=== PATIENT | female | born 1945 | race Caucasian/White ===

== ENCOUNTER → 2016-10-31 | Day surgery (SDC) | payer MEDICARE ==
[2016-10-31] VITALS (8 sets, daily range): BP systolic 116–139; BP diastolic 48–72; PULSE 59–68; RESP 12–18; O2SAT 97–100
[~2016-10-31] VITALS: Ht 162.6 cm; Wt 62.6 kg
[~2016-10-31] MED LIST: ACET-2605 PO; ALBU8.5H2 INHALATION; ALLO300T2 PO; ASPI325T32 PO; CHOL200047 PO; Dexamethasone 4 mg/mL Inj IVPUSH PRN; Dexamethasone 4 mg/mL Inj ONE; EPHEDrine Sulfate 50 mg/mL Inj IVPUSH PRN; EPHEDrine/NS 5 mg/mL 5 mL Syringe ONE; GABA-502 PO; HYDR-3090 PO; HYDR-656 PO; HYDROcodone-APAP 5-325 mg Tablet PO PRN; HYDROmorphone 1 mg/mL Inj IVPUSH PRN; ISOS60TA2 PO; L.AC1CAP6 PO; LEVO125C2 PO; Lactated Ringer's 1,000 ML IV ONE; Lactated Ringer's 1,000 ML IV SCH; Lactated Ringer's 500 ML IV PRN; METF500T4 PO; METO50TA3 PO; MetoCLOpramide 5 mg/mL 2 mL Inj IVPUSH PRN; NITR0.4T6 SL; OMEP20CA11 PO; Ondansetron 2 mg/mL 2 mL Inj IVPUSH PRN; Ondansetron 2 mg/mL 2 mL Inj ONE; POTA20PA12 PO; PRAV40TA PO; Phenylephrine 10,000 mCg/mL Inj IVPUSH PRN; Phenylephrine/NS 100 mCg/mL 10 mL Syringe IVPUSH ONE; Propofol 10,000 mCg/mL 20 mL Inj ONE; Vancomycin Inj 1,000 MG in IV Premix 1 EACH IV ONE; fentaNYL-PF 50 mCg/mL 2 mL Inj IVPUSH PRN; fentaNYL-PF 50 mCg/mL 2 mL Inj ONE
--- NOTE | 2016-10-31 08:21 | PCM.HPANE ---
Patient Data Surgeon Admitting Provider: Attending Provider:Edie Vaca MD Primary Care Physician:Forrest Floyd MD Other Provider:[facility] Reason for Visit Right Kidney Stone Ht/WT & BMI Height (Feet): 5 Height (Inches): 4 Weight (Kilograms): 69.85 Body Mass Index 26.00 Allergies Coded Allergies: Penicillins (Verified Allergy, Severe, hives and swelling, 12/06/13) Quinolones (Verified Allergy, Severe, RASH,HIVES, 12/06/13) amlodipine (Verified Allergy, Severe, hives and swelling (pt currently taking amlodipine), 12/06/13) codeine (Verified Allergy, Severe, OK WITH MORPHINE, 12/06/13) erythromycin ethylsuccinate (Verified Allergy, Severe, HIVES,RASH, 12/06/13 ) lisinopril (Verified Allergy, Severe, RASH, HIVES, 12/06/13) peanut (Verified Allergy, Severe, ANAPHYLAXIS, 12/06/13) prednisone (Verified Allergy, Severe, RASH,HIVES, 12/06/13) verapamil (Verified Allergy, Severe, severe tacycardia and swelling, ) nitrofurantoin (Verified Allergy, Unknown, oral sores, 12/25/15) Uncoded Allergies: MILK,BANANAS,NUTS,COD (Allergy, Unknown, unknown, 12/06/13) Past Anesthesia History Anesthesia History: Denies:: Abnormal Airway, Anesthesia Reactions, Difficult Intubation, Malignant Hyperthermia Diabetes History Hx Diabetes?: Yes (hgb A1c 5.7) Type of Diabetes: Type II Glycemic Control: Oral Medication MRSA MRSA: No Medications Blood Thinner: Aspirin Hypertension Medication: Yes Home Meds Incl Beta Jennifer: Yes Reported Medications Cholecalciferol (Vitamin D3) (Vitamin D3)2,000 Unit Capsule2,000 Unit PO DAILY 10/21/16 Acetaminophen/Diphenhydramine (Tylenol Pm Ex-Strength Caplet)500 Mg-25 Mg Tablet1 Each PO PRN For Pain 10/21/16 Levothyroxine (Tirosint)125 Mcg Zyroiae693 Mcg PO DAILY 10/21/16 L.acidoph & Paracasei,B.lactis (Probiotic)10 Billion Cell Capsule1 Each PO DAILY 10/21/16 Albuterol HFA (Proair HFA)8.5 Gm Hfa.aer.ad2 Puffs INHALATION Q4H PRN For Shortness of Breath #1 INHALER 10/21/16 Pravastatin 40 Mg Rmywuz56 Mg PO DAILY Ref 0 10/21/16 Potassium Chloride (Potassium Chloride Powder)20 Meq PacketUnknown Dose PO DAILY 30 Days Ref 0 DISSOLVE CONTENTS OF PACKET IN FULL GLASS OF WATER AND DRING TWO TIMES DAILY. TAKE WITH FOOD 10/21/16 Omeprazole 20 Mg Capsule.dr20 Mg PO DAILY Ref 0 10/21/16 Nitroglycerin SL 0.4 Mg Tab.subl0.4 Mg SL PRN For Chest Pain 10/21/16 Metoprolol Tartrate 50 Mg Gojfky39 Mg PO TID 30 Days Ref 0 10/21/16 Metformin 500 Mg Olpljy556 Mg PO BID Ref 0 10/21/16 Isosorbide MN ER 60 Mg Tab.er.24h90 Mg PO DAILY 10/21/16 hydrOXYzine Hcl (HydrOXYzine Hcl)25 Mg Siblud01 Mg PO HS PRN For Spasm 10/21/16 Hydrocodone-Acetaminophen 5-300 mg 1 Each Tablet1 Tablet PO Q4H PRN For Pain Ref 0 10/21/16 Gabapentin 300 Mg Ipkiucr488 Mg PO DAILY Ref 0 10/21/16 Aspirin 325 Mg Hzjpwc644 Mg PO DAILY #1 BOTTLE 10/21/16 Allopurinol 300 Mg Ginkhx172 Mg PO DAILY Ref 0 10/21/16 History History of ENT Problems?: No HEENT History: Denies:: Abnormal Airway Difficult Intubation Denture Type: None Teeth Condition: Broken Teeth Hx of Heart Problems?: Yes Cardiovascular History: Positive for:: Cardiac Surgery (Cabg- 3 vessel 2005, multiple stents) Chest Pain Edema Heart Murmur (ECHO 05/2013) Hypertension Irregular Heartbeat (sinus bradycardia) Hx of Respiratory Problem?: Yes Respiratory History: Positive for:: Asthma COPD Denies:: Oxygen Administration Pneumonia Tuberculosis Use of C-PAP Machine Hx Neurologic Problems?: Yes Neurological History: Positive for:: Dizziness (hx of syncope) Denies:: CVA Multiple Sclerosis Parkinson's Disease Seizures Other Neurological Pertinent: hx of peripheral neuropathy Hx of GI Problems?: Yes Hx of Problems?: Yes Genitourinary History: Positive for:: Kidney Stones (right kidney stone current admission problem, hx of prior stones) Denies:: Urinary Tract Infection (past hx of) Female Hx: Positive for:: Problems with Breasts? (prior hx of benign breast bx ) Denies:: Currently (hysterectomy) Skin History: Denies:: History Skin Disorders? Pressure Ulcers Hx Musculoskeletal Problems?: No Musculoskeletal History: Denies:: Degenerative Joint Fibromyalgia Joint Replacement Musculoskeletal Trauma Osteoarthritis Hx of Psycho/Social Problems?: No Hx Surgeries?: Yes (CABG x 2, hyst, mult kidney stones, elisha, A+P repair, bladder sling) Hx Any Other Health Problems?: Yes Other History: Positive for:: Hospitalization Thyroid Disease Denies:: Cancer Endocrine Disease History Blood Transfusions: Denies:: Blood Transfusions Hx Diabetes: Yes (hgb A1c 5.7) Hx Alcohol Use: NoHx Substance Use: No Smoking Status: Unknown if Ever Smoker Have You Smoked inLast 12 mo: No Stop/Bang S-Snoring: Do You Snore Loudly: No T-Tired: feel tired, fatigued: Yes O-Obsered: Observed not breath: No P-Blood Pressure: treated: Yes B- Body Mass Index > 35 kg/m2: No A- Age over 50: Yes N- Neck Large Circumference: No G- Gender Male: No CAITLYN Total Score: 3 Risk Assessment Category Category 1A: Patient has history of documented sleep apnea, and HAS NOT received any narcotic, sedative or anesthesia administration during this stay. Category 1B: Patient has history of documented sleep apnea, and HAS received any narcotic , sedative or anesthesia administration during this stay Category 2: Patient has SUSPECTED Obstructive Sleep Apnea, and HAS received any narcotic , sedative or anesthesia administration during this stay. Category 3: Patient has SUSPECTED Obstructive Sleep Apnea and HAS NOT received narcotic, sedative or anesthesia administration during this stay. Category 4: Outpatient in Procedural Areas with known sleep apnea or who screen positive for High Risk via the STOP/BANG questionnaire. Exam Exam General Appearance: Alert HEENT/AIRWAY: MP 1 Lungs: Normal Air Movement Heart: Regular Rate/Rhythm Meds/Labs/Diagnostics Admission Meds Current Medications Lactated Ringer's (Lr) 1,000 ml @ 120 mls/hr Q8H20M ONCE IV Last administered on 10/31/16t 08:07; Start 10/31/16 at 05:00; Stop 10/31/16 at 13:19 Plan Impression Patient chart reviewed, patient interviewed and anesthestic plan with risks, benefits, and alternatives discussed, and informed consent obtained. NPO per Anesth. Guidelines: Yes ASA Physical Status: ASA3 Severe Disease Anesthetic Plan: GA Bene/Risks/Altern/Consents: Yes HP Complete Prior to Induction: Yes Dimas Luong MD Oct 31, 2016 08:21
--- NOTE | 2016-10-31 10:07 | OP ---
[address] [address] OPERATIVE REPORT PATIENT: JETT RODRÍGUEZ : 1945 MR#: [id number] ADMIT: 10/31/2016 JOB ID: [id number] DATE OF SURGERY: 10/31/2016 PREOPERATIVE DIAGNOSIS(ES): Right kidney stone. POSTOPERATIVE DIAGNOSIS(ES): 1. Right kidney stone. 2. Right proximal ureteral stricture. SURGEON: Edie Vaca MD BUSINESS ECONOMIST: None. FINDINGS: An approximately 1 cm right proximal ureteral stricture. ANESTHESIA: General. ESTIMATED BLOOD LOSS: None. DRAINS: A 6 x 22 right double-J ureteral stent. COMPLICATIONS: None. CONDITION: Stable. INDICATIONS: The patient is a 71-year-old woman with very small right kidney stones, which she wished to have treated. She has had history of manipulation of her right upper urinary tract for stones. She now presents for ureteroscopy. DESCRIPTION OF PROCEDURE: After informed consent was obtained, the patient was taken to the operating room. A time-out was performed identifying correct patient, surgical site, and procedure. General anesthesia was induced. She was given intravenous antibiotics just prior to the start of the procedure. She was placed in the lithotomy position and all pressure points were identified and appropriately padded. Her genitals and prepped and draped in usual sterile fashion. A 22-Telugu rigid cystoscope was applied to the patient's urethra and advanced into the bladder. The bladder was drained. Bladder appeared normal. The right ureteral orifice was seen in orthotopic position. It was cannulated with 5-Telugu open-ended Pollack catheter. Retrograde pyelogram was performed. There was seen a very narrow caliber ureter at the right proximal ureter. Two Sensor tip wires were then navigated into the renal pelvis in succession as seen under fluoroscopy. Semi-rigid ureteroscopy then commenced to the mid ureter. There were no stones. The ureter appeared normal. The ureteroscope was then brought down under direct vision. Over one of the Sensor tip wires a 12-14 access sheath 28 cm long was then used to navigate the mid and proximal ureter. Flexible ureteroscopy then commenced. At this point, there was seen under direct vision the narrow caliber ureter. It was impossible to navigate beyond this area. Retrograde pyelogram was repeatedly performed verifying the nature of the stricture. The ureteroscope was then brought down the level of the access sheath and both brought down in tandem. The remaining Sensor tip wire was then backloaded into the cystoscope and a 6 x 22 double-J ureteral stent was loaded over it and navigated to the renal pelvis as seen under fluoroscopy. The wire was then removed with a nice coil in the patient's bladder as seen under direct vision. The bladder was then drained. The patient then reversed from general anesthesia and taken to PACU in good stable condition. LUIS FELIPE
--- NOTE | 2016-10-31 11:58 | PCM.ANEP1 ---
Post Anesthesia PACU Phase 1 Assessment Vital Signs Vital Signs Date Time Temp Pulse Resp B/P Pulse Ox O2 Delivery O2 Flow Rate FiO2 10/31/16 10:12 62 18 120/49 97 Room Air 10/31/16 10:05 63 17 117/51 98 Room Air 10/31/16 10:00 36.3 60 17 116/49 97 Room Air 10/31/16 09:45 63 13 126/50 97 Room Air 10/31/16 09:40 66 14 135/48 98 Room Air 10/31/16 09:35 61 12 132/61 100 Simple Mask 10 10/31/16 09:33 36.6 68 12 133/49 100 Simple Mask 10 10/31/16 08:22 36.2 59 18 139/72 99 Room Air Anesthetic Administered: GA Level of Alertness: Awake, talking Pain: No Nausea or Vomiting: Yes CV Function & Hydration Stable: Yes Airway Device: None Lungs: Normal Air Movement PACU Phase 2 Assessment Complications: No Follow up Care: N/A Patient Instructions Provided: N/A Dimas Luong MD Oct 31, 2016 11:58
--- NOTE | 2016-10-31 14:45 | DRSVH ---
PROCEDURE: X-RAY RETROGRADE UROGRAPHY INDICATIONS: C-ARM ASSISTED RIGHT STENT PLACEMENT TECHNIQUE: 4 intra-operative images acquired by the Urology service. COMPARISON: Outside Film, CT, CT ABD PELVIS WO CON, 06/16/2016, 13:11. [facility], CR, R ETROGRADE UROGRAPHY, 07/21/2008, 14:31. FINDINGS: Exam is limited to 4 submitted images. Within these limits, opacification of the right re nal collecting system demonstrates no hydronephrosis. There is a small rounded intraluminal filling defect seen above in the renal pelvis otherwise no additional filling defects are seen. Visualized p ortions of the proximal to mid left ureter demonstrate normal course and caliber. Ureteral stent was placed. IMPRESSION: Small intraluminal filling defect involving the renal pelvis which could be related to a small stone versus gas bubble. Correlate with real-time exam. Ureteral stent placement. Dictated by: Henrry YANCEY Interpreted: Aron Rose MD on 10/31/2016 at 11:01 Approved by: Aron Rose M.D. on 10/31/2016 at 14:42
== END | disposition home or self-care (01) ==
LOC: SAS 08:02
PROVIDERS: ATTEND Urology
DX: N20.0 Calculus of kidney (principal); N13.5 Crossing vessel and stricture of ureter without hydronephrosis; I10 Essential (primary) hypertension; I25.10 Atherosclerotic heart disease of native coronary artery without angina pectoris; E03.9 Hypothyroidism, unspecified; E11.9 Type 2 diabetes mellitus without complications; E78.5 Hyperlipidemia, unspecified; Z95.1 Presence of aortocoronary bypass graft; Z87.440 Personal history of urinary (tract) infections; Z79.82 Long term (current) use of aspirin; Z79.84 Long term (current) use of oral hypoglycemic drugs
CPT/HCPCS: 52332; 74420; C2617; J1100; J2370; J2405; J2704; J3010; J3370; J7120; Q9967

== ENCOUNTER → 2016-11-28 | Day surgery (SDC) | payer MEDICARE ==
[~2016-11-28] VITALS: Ht 152.4 cm; Wt 64.2 kg
[~2016-11-28] MED LIST changes: -ACET-2605 PO; -CHOL200047 PO; -EPHEDrine/NS 5 mg/mL 5 mL Syringe ONE; -GABA-502 PO; +Glycopyrrolate 0.2 MG/ML 1mL Inj ONE; +ISOS30TA4 PO; -LEVO125C2 PO; +LEVO137C2 PO; +METF-495 PO; -METF500T4 PO; +NITR0.4T SL; -NITR0.4T6 SL; +Neostigmine 1 mg/mL 10 mL Inj ONE; +POTA10CA42 PO; -POTA20PA12 PO; -PRAV40TA PO; -Phenylephrine/NS 100 mCg/mL 10 mL Syringe IVPUSH ONE; +Rocuronium 10 mg/mL 5 mL Inj ONE; +Vancomycin 1 Gm/200 mL NS Premix IV ONE; +Vancomycin 1 Gm/200 mL NS Premix IV SCH; +Vancomycin 1,000mg/200 mL NS IV ONE; -Vancomycin Inj 1,000 MG in IV Premix 1 EACH IV ONE
[2016-11-28 13:07] VITALS: BP 167/65; PULSE 58; RESP 16; O2SAT 97
--- NOTE | 2016-11-28 16:21 | PCM.HPANE ---
Patient Data Surgeon Admitting Provider: Attending Provider:Edie Vaca MD Primary Care Physician:Forrest Floyd MD Other Provider:[facility] Reason for Visit Right Kidney Stone Ht/WT & BMI Height (Feet): 5 Height (Inches): 2 Weight (Kilograms): 64.2 Body Mass Index 27.00 Allergies Coded Allergies: Penicillins (Verified Allergy, Severe, hives and swelling, 11/28/16) Quinolones (Verified Allergy, Severe, RASH,HIVES, 11/28/16) amlodipine (Verified Allergy, Severe, hives and swelling (pt currently taking amlodipine), 11/28/16) codeine (Verified Allergy, Severe, OK WITH MORPHINE, 11/28/16) erythromycin ethylsuccinate (Verified Allergy, Severe, HIVES,RASH, 11/28/16 ) lisinopril (Verified Allergy, Severe, RASH, HIVES, 11/28/16) peanut (Verified Allergy, Severe, ANAPHYLAXIS, 11/28/16) prednisone (Verified Allergy, Severe, RASH,HIVES, 11/28/16) verapamil (Verified Allergy, Severe, severe tacycardia and swelling, ) nitrofurantoin (Verified Allergy, Unknown, oral sores, 11/28/16) Uncoded Allergies: MILK,BANANAS,NUTS,COD (Allergy, Unknown, unknown, 12/06/13) Past Anesthesia History Anesthesia History: Denies:: Abnormal Airway, Anesthesia Reactions (vomiting for three days post op), Difficult Intubation, Fam Anesthesia Reaction, Fam Malignant Hypertherm, Malignant Hyperthermia Diabetes History Hx Diabetes?: Yes Type of Diabetes: Type II Glycemic Control: Oral Medication Current Bedside Blood Glucose: 83 MRSA MRSA: No Medications Blood Thinner: Aspirin Last Dose Blood Thinner: Oct 17, 2016 Hypertension Medication: Yes (Metoprolol) Home Meds Incl Beta Jennifer: Yes Date Beta Jennifer Taken: Nov 28, 2016 Reported Medications Levothyroxine (Tirosint)137 Mcg Tkhpzxg338 Mcg PO DAILY 11/25/16 L.acidoph & Paracasei,B.lactis (Probiotic)10 Billion Cell Capsule1 Each PO 11/25/16 Albuterol HFA (Proair HFA)8.5 Gm Hfa.aer.ad2 Puffs INHALATION Q4H #1 INHALER 11/25/16 Omeprazole 20 Mg Capsule.dr20 Mg PO TID Ref 0 11/25/16 Potassium Chloride 10 Meq Capsule.er10 Meq PO DAILY 30 Days Ref 0 TAKE WITH FOOD 11/25/16 Nitroglycerin SL (Nitrostat)0.4 Mg Tab.subl0.4 Mg SL Q5MIN PRN For Chest Pain # 1 BOTTLE 11/25/16 Metoprolol Tartrate 50 Mg Vnhsyg01 Mg PO TID 30 Days Ref 0 11/25/16 Metformin ER 500 Mg Yvamiw634 Mg PO DAILY Ref 0 11/25/16 Isosorbide MN ER 60 Mg Tab.er.24h60 Mg PO DAILY 11/25/16 Isosorbide MN ER 30 Mg Tab.er.24h30 Mg PO DAILY 11/25/16 hydrOXYzine Hcl (HydrOXYzine Hcl)25 Mg Ypmwgq41 Mg PO HS PRN For Insomnia 11/25/16 Hydrocodone-Acetaminophen 5-300 mg 1 Each Tablet1 Tablet PO Q4H PRN For Pain Ref 0 11/25/16 Aspirin 325 Mg Ybrmum326 Mg PO DAILY #1 BOTTLE 11/25/16 Allopurinol 300 Mg Txrkbl354 Mg PO DAILY Ref 0 11/25/16 Discontinued Reported Medications Cholecalciferol (Vitamin D3) (Vitamin D3)2,000 Unit Capsule2,000 Unit PO DAILY 10/21/16 Acetaminophen/Diphenhydramine (Tylenol Pm Ex-Strength Caplet)500 Mg-25 Mg Tablet1 Each PO PRN For Pain 10/21/16 Levothyroxine (Tirosint)125 Mcg Bxyxonl263 Mcg PO DAILY 10/21/16 L.acidoph & Paracasei,B.lactis (Probiotic)10 Billion Cell Capsule1 Each PO DAILY 10/21/16 Albuterol HFA (Proair HFA)8.5 Gm Hfa.aer.ad2 Puffs INHALATION Q4H PRN For Shortness of Breath #1 INHALER 10/21/16 Pravastatin 40 Mg Yjkola95 Mg PO DAILY Ref 0 10/21/16 Potassium Chloride (Potassium Chloride Powder)20 Meq PacketUnknown Dose PO DAILY 30 Days Ref 0 DISSOLVE CONTENTS OF PACKET IN FULL GLASS OF WATER AND DRING TWO TIMES DAILY. TAKE WITH FOOD 10/21/16 Omeprazole 20 Mg Capsule.dr20 Mg PO DAILY Ref 0 10/21/16 Nitroglycerin SL 0.4 Mg Tab.subl0.4 Mg SL PRN For Chest Pain 10/21/16 Metoprolol Tartrate 50 Mg Uzwlsi92 Mg PO TID 30 Days Ref 0 10/21/16 Metformin 500 Mg Yfxuhn656 Mg PO BID Ref 0 10/21/16 Isosorbide MN ER 60 Mg Tab.er.24h90 Mg PO DAILY 10/21/16 hydrOXYzine Hcl (HydrOXYzine Hcl)25 Mg Vzpemr21 Mg PO HS PRN For Spasm 10/21/16 Hydrocodone-Acetaminophen 5-300 mg 1 Each Tablet1 Tablet PO Q4H PRN For Pain Ref 0 10/21/16 Gabapentin 300 Mg Iqadrgj198 Mg PO DAILY Ref 0 10/21/16 Aspirin 325 Mg Cdtlaz742 Mg PO DAILY #1 BOTTLE 10/21/16 Allopurinol 300 Mg Ppnrsp894 Mg PO DAILY Ref 0 10/21/16 History History of ENT Problems?: No HEENT History: Denies:: Abnormal Airway Difficult Intubation Dysphagia Hearing Problem Sinus Problem TMJ Denture Type: None Teeth Condition: Within Normal Limits Hx of Heart Problems?: Yes Cardiovascular History: Positive for:: Cardiac Surgery (Cabg- 3 vessel 2005) Chest Pain Edema Heart Murmur (ECHO 05/2013) Hypertension Denies:: Irregular Heartbeat Hx of Respiratory Problem?: Yes Respiratory History: Positive for:: Asthma COPD Dyspnea (can climb one flight of stairs with out stopping) Pneumonia (2011) Use of Inhalers / NEBS (Pro Air) Denies:: Cough Hemoptysis Oxygen Administration Pulmonary Embolism Tuberculosis Use of C-PAP Machine Hx Neurologic Problems?: Yes Neurological History: Positive for:: Dizziness (hx of syncope) Denies:: Alzheimer's Disease CVA Dementia Headaches Multiple Sclerosis Parkinson's Disease Seizures TIA Hx of GI Problems?: Yes Hx of Problems?: Yes Genitourinary History: Positive for:: Kidney Stones (right kidney stone current admission problem, hx of prior stones) Denies:: HX of Hemodialysis Urinary Tract Infection (past hx of) HX of Peritoneal Dialysis: No Female Hx: Positive for:: Problems with Breasts? (prior hx of benign breast bx ) Denies:: Currently (hysterectomy) Skin History: Denies:: History Skin Disorders? Pressure Ulcers Hx Musculoskeletal Problems?: No Musculoskeletal History: Positive for:: Degenerative Joint Osteoarthritis Denies:: Back Injury Joint Replacement Musculoskeletal Trauma Rheumatoid Arthritis Hx of Psycho/Social Problems?: No Hx Surgeries?: Yes (CABG x 2, hyst, mult kidney stones, elisha, A+P repair, bladder sling) Hx Any Other Health Problems?: Yes Other History: Positive for:: Hospitalization Thyroid Disease Denies:: Cancer Endocrine Disease History Blood Transfusions: Positive for:: Accept Blood Products? Denies:: Blood Transfusions Hx Diabetes: YesBedside Blood Glucose: 83 Hx Alcohol Use: NoHx Substance Use: No Smoking Status: Never Smoker Have You Smoked inLast 12 mo: No Stop/Bang S-Snoring: Do You Snore Loudly: No T-Tired: feel tired, fatigued: Yes O-Obsered: Observed not breath: No P-Blood Pressure: treated: Yes B- Body Mass Index > 35 kg/m2: No A- Age over 50: Yes N- Neck Large Circumference: No G- Gender Male: No CAITLYN Total Score: 3 Risk Assessment Category Category 1A: Patient has history of documented sleep apnea, and HAS NOT received any narcotic, sedative or anesthesia administration during this stay. Category 1B: Patient has history of documented sleep apnea, and HAS received any narcotic , sedative or anesthesia administration during this stay Category 2: Patient has SUSPECTED Obstructive Sleep Apnea, and HAS received any narcotic , sedative or anesthesia administration during this stay. Category 3: Patient has SUSPECTED Obstructive Sleep Apnea and HAS NOT received narcotic, sedative or anesthesia administration during this stay. Category 4: Outpatient in Procedural Areas with known sleep apnea or who screen positive for High Risk via the STOP/BANG questionnaire. Exam Exam Vital Signs Vital Signs Date Time Temp Pulse Resp B/P Pulse Ox O2 Delivery O2 Flow Rate FiO2 11/28/16 13:07 35.9 58 16 167/65 97 Room Air General Appearance: Alert, Oriented X3, Cooperative HEENT/AIRWAY: MP 2 Lungs: Clear to Auscultation Heart: Exam Unremarkable Meds/Labs/Diagnostics Admission Meds Current Medications Lactated Ringer's 1,000 ml @ 120 mls/hr Q8H20M ONCE IV Last administered on 13:13; Start 11/28/16 at 07:28; Stop 11/28/16 at 15:47 Vancomycin/0.9 % Sod Chloride/ Premix (Vancomycin Inj/ IV Premix) 200 ml @ 133.333 mls/hr OT ONCE IV Last administered on 11/28/16 14:00; Start at 13:55; Stop 11/28/16 at 15:24 Bedside Blood Glucose: 83 Plan Impression Patient chart reviewed, patient interviewed and anesthestic plan with risks, benefits, and alternatives discussed, and informed consent obtained. NPO per Anesth. Guidelines: Yes ASA Physical Status: ASA3 Severe Disease Anesthetic Plan: GA Bene/Risks/Altern/Consents: Yes HP Complete Prior to Induction: Yes Sky Winter DO Nov 28, 2016 14:58
[2016-11-28 17:00] VITALS: BP 158/60; PULSE 61; RESP 15; O2SAT 100
[2016-11-28 17:05] VITALS: BP 166/66; PULSE 60; RESP 13; O2SAT 100
--- NOTE | 2016-11-28 17:05 | PCM.ANEP1 ---
Post Anesthesia PACU Phase 1 Assessment Vital Signs Vital Signs Date Time Temp Pulse Resp B/P Pulse Ox O2 Delivery O2 Flow Rate FiO2 11/28/16 13:07 35.9 58 16 167/65 97 Room Air Anesthetic Administered: GA Level of Alertness: Drowsy, not talking HERZOG's with Equal Strength: Yes Pain: No Nausea or Vomiting: No CV Function & Hydration Stable: Yes Airway Device: Oxygen Delivery: Simple Mask Lungs: Clear to Auscultation PACU Phase 2 Assessment Complications: No Follow up Care: N/A Patient Instructions Provided: N/A Sky Winter DO Nov 28, 2016 17:05
[2016-11-28 17:15] VITALS: BP 158/69; PULSE 59; RESP 13; O2SAT 98
[2016-11-28 17:31] VITALS: BP 149/67; PULSE 71; RESP 16; O2SAT 96
[2016-11-28 17:44] VITALS: PULSE 64; RESP 16; O2SAT 98
--- NOTE | 2016-11-29 01:22 | OP ---
[address] [address] OPERATIVE REPORT PATIENT: JETT RODRÍGUEZ : 1945 MR#: [id number] ADMIT: 11/28/2016 JOB ID: [id number] DATE OF SURGERY: 11/28/2016 PREOPERATIVE DIAGNOSIS(ES): 1. Right kidney stone. 2. Right proximal ureteral stricture. POSTOPERATIVE DIAGNOSIS(ES): SURGEON: Edie Vaca MD. VISION MIXER: None. FINDINGS: 1. Two right lower pole kidney stones. 2. Right proximal ureteral stricture, essentially at the UPJ. PROCEDURE PERFORMED: 1. Cystoscopy. 2. Right ureteral stent removal. 3. Right ureteroscopy and laser lithotripsy with stone basketing. 4. Right retrograde pyelogram. 5. Right laser incision of ureteral stricture. 6. Right ureteral stent placement. ANESTHESIA: General. ESTIMATED BLOOD LOSS: Less than 5 mL. DRAINS: An 8 x 22 right double-J ureteral stent. SPECIMENS: Kidney stones. COMPLICATIONS: None. CONDITION: Stable. INDICATION FOR PROCEDURE: The patient is a 71-year-old woman who has previously undergone stent placement after the finding of the right ureteral stricture. She now presents for the aforementioned procedure. DESCRIPTION OF PROCEDURE: After informed consent was obtained, the patient was taken to the operating room. A time-out was performed, identifying correct patient, surgical site, and procedure. General anesthesia was smoothly induced. She was placed in the lithotomy position and all pressure points were identified and appropriately padded. Her genitals were then prepped draped and draped in usual sterile fashion. A rigid cystoscope was applied to the patient's urethra and advanced into the bladder. The bladder was drained. The stent was seen emanating from the right ureteral orifice. It was manipulated down to the urethral meatus with stent graspers. It was cannulated with a Sensor Tip wire which was advanced to the renal pelvis. The stent was removed and ensured it was removed in its entirety. A second Sensor Tip wire was then placed into the renal pelvis. A 12 /14 access sheath 28 cm long was then placed into the proximal ureter. Flexible ureteroscopy commenced. Retrograde pyelogram performed. There was seen a stricture again. All the calices were inspected multiple times and there was a stone in the lower pole calyx. There were no other stones but Rock's plaques present. A 273-micron laser fiber wire was used to break the stones into little pieces. Stone basketing commenced to remove the stone fragments. These were passed off the table to Pathology and stone for analysis. The ureteroscope was then brought to the level of the ureteropelvic junction. The laser was used to incise the stricture at the posteriolateral aspect. The laser was used to incise the stricture and it actually appeared to spring open quite nicely. The ureteroscope was then brought down to the level of the access sheath and both were brought down in tandem. The remaining Sensor Tip wire was then backloaded into the cystoscope and an 8 x 22 double-J ureteral stent was loaded over it and advanced into the renal pelvis as seen under fluoroscopy. The wire was then removed leaving a nice coil in the patient's bladder under standard direct vision. Bladder was then drained. She was reversed from general anesthesia and taken to PACU in good and stable condition. LUIS FELIPE
--- NOTE | 2016-11-29 11:11 | DRSVH ---
PROCEDURE: X-RAY RETROGRADE UROGRAPHY INDICATIONS: RIGHT URETERAL STENT PLACEMENT. TECHNIQUE: 4 intra-operative images acquired by the Urology service. COMPARISON: Outside Film, CT, CT ABD PELVIS WO CON, 06/16/2016, 13:11. [facility], CR, X R RETROGRADE UROGRAPHY, 10/31/2016, 9:19. FINDINGS: The right renal collecting system was accessed. There is again seen a focal narrowing inv olving the ureteropelvic junction. On the final image, the proximal end of a double-J stent can be s een. IMPRESSION: Placement of a right-sided double-J stent. Ureteropelvic junction narrowing. Dictated by: Luis Manuel Menard M.D. on 11/29/2016 at 11:08 Approved by: Luis Manuel Menard M.D. on 11/29/2016 at 11:09
== END | disposition home or self-care (01) ==
LOC: SAS 12:25
PROVIDERS: ATTEND Urology
DX: N20.0 Calculus of kidney (principal); N13.5 Crossing vessel and stricture of ureter without hydronephrosis; E03.9 Hypothyroidism, unspecified; I10 Essential (primary) hypertension; E78.5 Hyperlipidemia, unspecified; I25.10 Atherosclerotic heart disease of native coronary artery without angina pectoris; E11.9 Type 2 diabetes mellitus without complications; Z87.891 Personal history of nicotine dependence; Z95.1 Presence of aortocoronary bypass graft; Z79.84 Long term (current) use of oral hypoglycemic drugs; Z79.82 Long term (current) use of aspirin
CPT/HCPCS: 52356; 74420; 82360; C2617; J1100; J2405; J2704; J2710; J3010; J3370; J7120; Q9967